=== PATIENT | male | born 1965 | race Caucasian/White ===

== ENCOUNTER 2017-12-17 12:23 | Emergency (ER) | payer BC, OTHER ==
[2017-12-17 12:42] VITALS: BP 129/77; PULSE 85; TEMP 98.6; BMI 38.7
--- NOTE | 2017-12-17 13:54 | PDOC ---
History of Present Illness - General Chief Complaint: Headache Stated Complaint: CONGESTION, HEADACHE Time Seen by Provider: 12/17/17 13:35 History Source: Patient Exam Limitations: No Limitations - History of Present Illness Initial Comments: 12/17/17 13:50 52-year-old male with past medical history of hypertension and carry my formation status post revision who presents emergency Department with purulent nasal drainage and sinus congestion for the past 4 days. Patient denies fevers, chills, headaches, blurry vision, dizziness, nausea, vomiting. Past History - Past Medical History Allergies/Adverse Reactions: Allergies Allergy/AdvReac Type Severity Reaction Status Date / Time No Known Allergies Allergy Verified 12/31/13 21:13 Home Medications: Ambulatory Orders Aspirin [ASA -] 2 tab PO ONCE 12/31/13 Olmesartan/Hydrochlorothiazide [Benicar Hct 40-25 mg Tablet] 1 each PO DAILY 07/04 Amox-Tr/K Cl [Augmentin - 875Mg Tablet] 1 tab PO BID #20 tablet 12/17/17 Asthma: Yes COPD: No HTN: Yes - Surgical History Abdominal Surgery: Yes (HERNIA, appendectomy) Appendectomy: Yes Neurologic Surgery: Yes (chiari malformation) - Immunization History Immunization Up to Date: Yes - Suicide/Smoking/Psychosocial Hx Smoking Status: No Smoking History: Never smoked Number of Cigarettes Smoked Daily: 0 Information on smoking cessation initiated: No Hx Alcohol Use: No Drug/Substance Use Hx: No Review of Systems - Review of Systems Able to Perform ROS?: Yes Is the patient limited Yi proficient: No Constitutional: No: Symptoms Reported HEENTM: Yes: See HPI Respiratory: No: Symptoms reported Cardiac (ROS): No: Symptoms Reported ABD/GI: No: Symptoms Reported : No: Symptoms Reported Musculoskeletal: No: Symptoms Reported Integumentary: No: Symptoms Reported Neurological: No: Symptoms reported Endocrine: No: Symptoms Reported Hematologic/Lymphatic: No: Symptoms Reported *Physical Exam - Vital Signs Last Vital Signs Temp Pulse Resp BP Pulse Ox 98.6 F 85 20 129/77 100 12/17/17 12:40 12/17/17 12:40 12/17/17 12:40 12/17/17 12:40 12/17/17 12:40 - Physical Exam General Appearance: Yes: Appropriately Dressed. No: Apparent Distress HEENT: positive: Nasal Congestion, Sinus Tenderness. negative: Pharyngeal Erythema Neck: positive: Trachea midline, Supple Respiratory/Chest: positive: Lungs Clear, Normal Breath Sounds. negative: Respiratory Distress, Accessory Muscle Use Cardiovascular: positive: Regular Rhythm, Regular Rate. negative: Murmur Gastrointestinal/Abdominal: positive: Normal Bowel Sounds, Soft. negative: Tender Musculoskeletal: positive: Normal Inspection. negative: CVA Tenderness Neurologic: positive: sanitary chemist II-XII NML intact, Fully Oriented, Alert, Normal Mood/ Affect, Normal Response, Motor Strength 5/5, Finger to Nose Medical Decision Making - Medical Decision Making 12/17/17 13:54 A/P: 52-year-old male with maxillary and frontal sinus pressure for 4 days Tender to palpation over the right frontal and right maxillary sinuses Purulent nasal drainage noted from the right nare Oropharynx clear without erythema or exudates TMs within normal limits bilaterally Patient with sinusitis. Given purulent nasal discharge I will treat the patient with Augmentin 875 twice a day for 10 days. Patient verbalizes understanding of discharge instructions. *DC/Admit/Observation/Transfer Diagnosis at time of Disposition: Sinusitis Qualifiers: Sinusitis location: maxillary Chronicity: acute Recurrence: not specified as recurrent Qualified Code(s): J01.00 - Acute maxillary sinusitis, unspecified - Discharge Dispostion Disposition: HOME Condition at time of disposition: Stable Decision to Admit order: No - Prescriptions Prescriptions: Amox-Tr/K Cl [Augmentin - 875Mg Tablet] 1 tab PO BID #20 tablet - Referrals - Patient Instructions Printed Discharge Instructions: DI for Sinusitis Additional Instructions: Rest, drink lots of fluids: Teas, water, soups, Pedialyte Augmentin 875mg twice a day for 10 days. Steamy showers/seem to face break up mucus Avoid contact with others until fevers and cough resolved Lots of handwashing and good hygiene Tylenol or Motrin for fever and pain Followup with private physician in one to 2 days as needed Return to emergency department for worsened symptoms, fevers, dehydration - Post Discharge Activity
== END 2017-12-17 14:07 | disposition home or self-care (01) ==
LOC: JERFT 12:23
DX: J01.00 Acute maxillary sinusitis, unspecified (principal); I10 Essential (primary) hypertension; J45.909 Unspecified asthma, uncomplicated
CPT/HCPCS: 99281-25

== ENCOUNTER 2019-07-15 12:15 | Emergency (ER) | payer BC ==
[2019-07-15 12:26] VITALS: BP 113/66; PULSE 67; TEMP 97.9; BMI 30.8
[2019-07-15] MEDS ORDERED: predniSONE 20 MG TABLET (UD) PO ONE (12:46)
[2019-07-15] MEDS ORDERED: predniSONE 20 MG TABLET (UD) ONE (12:51)
[2019-07-15] MEDS ORDERED: ALBUTEROL SO4 2.5/IPRATROPIUM 0.5 INH SOL 3 ML VIAL.NEB. NEB ONE (12:51)
[2019-07-15] MEDS: ALBUTEROL SO4 2.5/IPRATROPIUM 0.5 INH SOL 3 ML VIAL.NEB. NEB SCH ×2 (13:03→13:33)
--- NOTE | 2019-07-15 13:08 | PDOC ---
History of Present Illness - General Chief Complaint: Cold Symptoms Stated Complaint: COUGH/FEVER Time Seen by Provider: 07/15/19 12:29 History Source: Patient Exam Limitations: No Limitations Past History - Past Medical History Allergies/Adverse Reactions: Allergies Allergy/AdvReac Type Severity Reaction Status Date / Time No Known Allergies Allergy Verified 07/15/19 12:26 Home Medications: Ambulatory Orders Aspirin [ASA -] 2 tab PO ONCE 12/31/13 Olmesartan/Hydrochlorothiazide [Benicar Hct 40-25 mg Tablet] 1 each PO DAILY 07/04 Amox-Tr/K Cl [Augmentin - 875Mg Tablet] 1 tab PO BID #20 tablet 12/17/17 Albuterol 0.083% Nebulizer Muriel [Ventolin 0.083% Nebulizer Soln -] 1 neb NEB Q4H PRN #30 vial 07/15/19 predniSONE [Deltasone -] 40 mg PO DAILY #8 tablet 07/15/19 Asthma: Yes COPD: No HTN: Yes - Surgical History Abdominal Surgery: Yes (HERNIA, appendectomy) Appendectomy: Yes Neurologic Surgery: Yes (chiari malformation) - Immunization History Immunization Up to Date: Yes - Psycho Social/Smoking Cessation Hx Smoking Status: No Smoking History: Never smoked Number of Cigarettes Smoked Daily: 0 Information on smoking cessation initiated: No Hx Alcohol Use: No Drug/Substance Use Hx: No *Physical Exam - Vital Signs Last Vital Signs Temp Pulse Resp BP Pulse Ox 97.9 F 67 19 113/66 96 07/15/19 12:24 07/15/19 12:24 07/15/19 12:24 07/15/19 12:24 07/15/19 12:24 - Physical Exam General Appearance: No: Apparent Distress HEENT: positive: Normal ENT Inspection Respiratory/Chest: positive: Wheezing (mild expiratory wheezing B/L). negative : Respiratory Distress, Accessory Muscle Use, Labored Respiration, Rapid RR Cardiovascular: positive: Regular Rhythm, Regular Rate, S1, S2. negative: Murmur Integumentary: positive: Normal Color Neurologic: positive: Alert ED Treatment Course - Medications Given in the ED: ED Medications Discontinued Medications Generic Name Dose Route Start Last Admin Trade Name Freq PRN Reason Stop Dose Admin Prednisone 60 mg 07/15/19 12:46 07/15/19 13:03 Deltasone - PO 07/15/19 12:47 60 mg ONCE ONE Administration Medical Decision Making - Medical Decision Making 54 y/o M with hx of asthma (never hospitalized, never intubated), HTN presents with asthma like sxs from yesterday. Mentions had viral URI sxs x 3 days (with congestion, cough, rhinorrhea and fever). The URI sxs resolved yesterday, but then noted to have SOB and chest tightness. Tried using his nebulizer machine at home but it did not help. Sxs feel like his typical asthma. Denies smoking. Asthma exacerbation, likely from viral URI Plan: Duoneb x3, Pred, reassess 07/15/19 13:06 patient feeling much better on reassessment no further wheezing noted stable for dc 07/15/19 14:14 Discharge - Discharge Information Problems reviewed: Yes Clinical Impression/Diagnosis: Asthma Qualifiers: Asthma severity: mild Asthma persistence: unspecified Asthma complication type : with acute exacerbation Qualified Code(s): J45.901 - Unspecified asthma with ( acute) exacerbation Condition: Improved Disposition: HOME - Admission No - Additional Discharge Information Prescriptions: Albuterol 0.083% Nebulizer Muriel [Ventolin 0.083% Nebulizer Soln -] 1 neb NEB Q4H PRN #30 vial PRN Reason: Shortness Of Breath predniSONE [Deltasone -] 40 mg PO DAILY #8 tablet Prescription Drug Monitoring Program (I-STOP) results: I-STOP not reviewed - Follow up/Referral - Patient Discharge Instructions Patient Printed Discharge Instructions: DI for Asthma -- Adult - Post Discharge Activity
== END 2019-07-15 14:23 | disposition home or self-care (01) ==
LOC: JERFT 12:15
PROC: 3E0F7GC Introduction of Other Therapeutic Substance into Respiratory Tract, Via Natural or Artificial Opening (ICD-10-PCS; principal; 2019-07-15)
DX: J45.901 Unspecified asthma with (acute) exacerbation (principal); I10 Essential (primary) hypertension
CPT/HCPCS: 99282-25